=== PATIENT | female | born 1960 | race Caucasian/White ===

== ENCOUNTER 2017-12-06 10:46 | Day surgery (SDC) | payer BC ==
[~2017-12-06 10:46] MED LIST: Lactated Ringers 1,000 ML IV SCH; Sodium Chloride 0.9% 10 ML Syringe FLUSH PRN; Sodium Chloride 0.9% 2.5 ML Syringe FLUSH PRN
--- NOTE | 2017-12-06 11:37 | PCM.PREANE ---
Preanesthetic Assessment - Anesthesia/Transfusion/Family Hx Anesthesia History: Prior Anesthesia Without Reaction Family History of Anesthesia Reaction: No Transfusion History: No Prior Transfusion(s) - Review of Systems General: No Symptoms Pulmonary: No Symptoms Cardiovascular: No Symptoms Gastrointestinal: No Symptoms Neurological: No Symptoms - Physical Assessment NPO Status Date: 12/05/17 Height: 1.57 m Weight: 108.409 kg ASA Class: 2 Mental Status: Alert & Oriented x3 Airway Class: Mallampati = 3 Dentition: Reports: Caries ROM/Head Extension: Full Lungs: Clear to Auscultation, Normal Respiratory Effort Cardiovascular: Regular Rate, Regular Rhythm - Allergies Allergies/Adverse Reactions: Allergies Allergy/AdvReac Type Severity Reaction Status Date / Time No Known Allergies Allergy Verified 12/01/17 09:43 - Anesthesia Plan Pre-Op Medication Ordered: None (PMH: htn, HLD, ) - Acknowledgements Anesthesia Type Planned: MAC Pt an Appropriate Candidate for the Planned Anesthesia: Yes Alternatives and Risks of Anesthesia Discussed w Pt/Guardian: Yes Pt/Guardian Understands and Agrees with Anesthesia Plan: Yes PreAnesthesia Questionnaire Cardiovascular History: Reports: High Cholesterol, Hypertension Gastrointestinal History: Reports: GERD Endocrine/Metabolic History: Reports: Obesity/BMI 30+ Dermatologic History: Reports: Eczema Other Dermatologic History: eczema to hands, had toe nails surgicall removed - Past Surgical History Head Surgeries/Procedures: Reports: None - SUBSTANCE USE Smoking Status *Q: Never Smoker Recreational Drug Use History: No - HOME MEDS Home Medications: Home Meds Aspirin [[place] Aspirin] 81 mg PO DAILY 12/01/17 [History] Famotidine [Pepcid] 1 tab PO ASDIRECTED PRN 12/01/17 [History] Hydrochlorothiazide 25 mg PO DAILY 12/01/17 [History] Rosuvastatin Calcium 5 mg PO DAILY 12/01/17 [History] Triamcinolone Acetonide [Triamcinolone Acetonide 0.1% Crm] 1 applic TOP ASDIRECTED 12/01/17 [History] - CURRENT (IN HOUSE) MEDS Current Meds: Current Medications Lactated Ringer's (Ringers, Lactated) 1,000 mls @ 125 mls/hr IV ASDIRECTED RODERICK Last Admin: 12/06/17 11:12 Dose: 125 mls/hr Sodium Chloride (Saline Flush) 10 ml FLUSH ASDIRECTED PRN PRN Reason: Keep Vein Open Sodium Chloride (Saline Flush) 2.5 ml FLUSH ASDIRECTED PRN PRN Reason: Keep Vein Open Sodium Chloride (Saline Flush) 10 ml FLUSH ASDIRECTED PRN PRN Reason: Keep Vein Open Sodium Chloride (Saline Flush) 2.5 ml FLUSH ASDIRECTED PRN PRN Reason: Keep Vein Open
[2017-12-06] MEDS ORDERED: Midazolam 1 MG/ML 2 ML SDV ONE (12:12)
[2017-12-06] MEDS ORDERED: fentaNYL 100 MCG/2 ML SDV ONE (12:12)
[2017-12-06] MEDS ORDERED: Propofol 200 MG/20 ML SDV ONE ×2 (12:12→13:25)
--- NOTE | 2017-12-06 13:53 | PCM.OPNOTE ---
- General Post-Op/Procedure Note Date of Surgery/Procedure: 12/06/17 Operative Procedure(s): Diangostic EGD and colonoscopy Findings: Normal EGD, descending and sigmoid colon polyp Pre Op Diagnosis: GERD, constipation Post-Op Diagnosis: Normal EGD, descending colon polyp, sigmoid colon polyp Anesthesia Technique: [facility] – [place], [place] Primary Surgeon: Daisy Geller Condition: Good Free Text/Narrative:: Intake & Output 12/05/17 12/06/17 12/06/17 22:59 06:59 14:59 Intake Total 975 Balance 975
--- NOTE | 2017-12-06 14:00 | PCM.POSTAN ---
POST ANESTHESIA ASSESSMENT - MENTAL STATUS Mental Status: Alert, Oriented - RESPIRATORY Respiratory Status: Respiratory Rate WNL, Airway Patent, O2 Saturation Stable - CARDIOVASCULAR CV Status: Pulse Rate WNL, Blood Pressure Stable - GASTROINTESTINAL GI Status: No Symptoms - POST OP HYDRATION Hydration Status: Adequate & Stable
--- NOTE | 2017-12-06 14:15 | PCM48HPAN ---
Post Anesthesia Note - EVALUATION WITHIN 48HRS OF ANESTHETIC Vital Signs in Normal Range: Yes Patient Participated in Evaluation: Yes Respiratory Function Stable: Yes Airway Patent: Yes Cardiovascular Function Stable: Yes Hydration Status Stable: Yes Pain Control Satisfactory: Yes Nausea and Vomiting Control Satisfactory: Yes Mental Status Recovered: Yes Resp Rate: 16 - COMMENTS/OBSERVATIONS Free Text/Narrative:: Awake and alert. Denies any complaints.
--- NOTE | 2017-12-06 16:01 | OR ---
SURGEON: LANEY DAVIES MD DATE OF PROCEDURE: 12/06/2017 PREOPERATIVE DIAGNOSES: Heartburn, chronic constipation. POSTOPERATIVE DIAGNOSES: Normal EGD, descending colon polyp, sigmoid colon polyp. PROCEDURES PERFORMED: Diagnostic EGD and colonoscopy. ANESTHESIA: MAC. INSTRUMENT USED: Olympus endoscope and colonoscope. EXTENT OF EXAM: To the second portion of duodenum, to the cecum. PREPARATION: Good. LIMITATIONS: None. INDICATION FOR EXAMINATION: The patient is a 57-year-old female, who presents with two complaints. When she eats certain food, the patient noticed some retrosternal burning and pressure. This usually goes away with the use of ranitidine. The patient also complains of chronic constipation and states that she will go or have a bowel movement only once a week. Decision was made to perform a diagnostic EGD and colonoscopy. We discussed the procedures, expected perioperative course, and risks including bleeding, infection, or damage to surrounding structures including perforation. The patient verbalized understanding and wishes to proceed. PROCEDURE IN DETAIL: The patient was brought to the endoscopy suite and placed in the left lateral decubitus position. A time-out was completed verifying the patient's name, age, date of , allergies, and procedure to be performed. A bite block was placed in the patient's mouth and monitored anesthesia care induced. Continuous oxygen was provided via nasal cannula throughout the procedure. After adequate sedation was achieved, a well lubricated endoscope was placed in the patient's mouth and advanced under direct visualization to the level of the second portion of duodenum. This appeared normal and a photograph was taken. The scope was then fully withdrawn while examining the color, texture, anatomy, and integrity of the mucosa of the upper GI tract. There was no evidence of duodenitis or ulcers. The scope was brought into the stomach and a photograph was taken of the GE junction as well as the pylorus. Both appeared normal. The gastric mucosa had no evidence of inflammation or ulceration. Biopsies were taken of the gastric antrum, body, and fundus and sent for H. pylori testing and histologic review. The scope was then brought into the distal esophagus and a photograph was taken of the GE junction. Again, there was no evidence of esophagitis. The remainder of the esophageal mucosa appeared normal. The scope was removed from the patient. This portion of procedure was terminated. A digital rectal exam was performed. This exam revealed mild hemorrhoidal disease. A well lubricated colonoscope was then inserted in the rectum and advanced under direct visualization to the level of cecum. The cecum was identified by both visual and anatomic landmarks. A photograph was taken of the cecal cap. I was unable to retroflex the scope within the cecum due to looping of the scope more proximally. The scope was then fully withdrawn while examining the color, texture, anatomy, and integrity of the mucosa from the cecum to the anal canal. The patient was noted to have two small polyps, one in the descending colon, one in the sigmoid colon. These were removed using a cold biopsy forceps. The scope was then brought into the rectum and retroflexed to allow visualization of the anal canal opening. This confirmed some mild hemorrhoidal enlargement, but was otherwise normal. A photograph was taken. The scope was then straightened out and removed from the patient. The cecum to anus time was 11 minutes. The patient tolerated the procedure well and was taken to PACU in stable condition. ENDOSCOPIC DIAGNOSES: 1. Normal esophagogastroduodenoscopy. 2. Descending colon polyp. 3. Sigmoid colon polyp. RECOMMENDATIONS: We will start the patient on daily MiraLax, and she can continue to take ranitidine as needed for heartburn symptoms. We will visit with the patient in 2 weeks to go over the pathology results of her polypectomies. BARBARA WHITING /[id number]
== END 2017-12-06 14:20 | disposition home or self-care (01) ==
LOC: MW.SDS 10:46
PROVIDERS: ATTEND Surgery
DX: K63.5 Polyp of colon (principal); K64.9 Unspecified hemorrhoids; I10 Essential (primary) hypertension; E78.00 Pure hypercholesterolemia, unspecified; Q89.9 Congenital malformation, unspecified; E66.9 Obesity, unspecified; Z79.82 Long term (current) use of aspirin; Z79.899 Other long term (current) drug therapy; Z68.41 Body mass index [BMI] 40.0-44.9, adult
CPT/HCPCS: 43239; 45380; 88305; 88312; J2250; J3010; J7120; 00813; J2704